=== PATIENT | male | born 1975 | race Two or more races ===

== ENCOUNTER 2021-01-10 11:34 | Outpatient (REF) | payer OTHER, SELFPAY ==
--- NOTE | ~2021-01-10 | US_ITS ---
EXAMINATION: US ABDOMEN COMPLETE CLINICAL INFORMATION: Right lower quadrant pain. COMPARISON: Renal ultrasound 03/18/2012. TECHNIQUE: Real-time imaging of the abdominal viscera. FINDINGS: PANCREAS: No abnormal mass or inflammatory changes seen about the head and body of the pancreas. The tail is obscured by overlying bowel gas. ABDOMINAL AORTA: The proximal, mid, and distal segments are normal in caliber. INFERIOR VENA CAVA: Visualized portions are normal. LIVER: The liver is normal in size. The liver contour is normal. There is increased echogenicity of the liver parenchyma consistent with fatty infiltration. No focal hepatic lesion. There is no intrahepatic biliary duct dilatation seen. GALLBLADDER: Normal. The gallbladder is physiologically distended without evidence of stones, sludge, polyps, wall thickening or pericholecystic fluid. COMMON BILE DUCT: Normal in caliber measuring 0.3 cm in diameter. RIGHT KIDNEY: Within the midpole region, there is a 2 mm echogenic density which may represent a nonobstructive calculus. No hydronephrosis or focal parenchymal lesions. The kidney measures 10.2 cm in maximum dimension. LEFT KIDNEY: Within the lower pole, there is a 1.9 cm cyst which appears to be simple. About the lower pole cortex, there is an echogenic 5 mm structure which may represent an angiomyolipoma. There is a midpole echogenic focus which may represent nonobstructive calculus or vessel interface. No hydronephrosis. The kidney measures 10.8 cm in maximum dimension. SPLEEN: Normal. The spleen measures 10.7 cm in maximum dimension. FREE FLUID: None. US/US abdomen complete IMPRESSION: Echogenic focus lower pole of the left kidney likely representing an angiomyolipoma. No evidence of obstructive uropathy. Nephrolithiasis. 1.9 cm left renal cyst.
== END 2021-01-10 11:35 | disposition home or self-care (01) ==
LOC: HO.US 11:34
PROVIDERS: PCP General Practice; Visit Provider General Practice
DX: R10.31 Right lower quadrant pain (principal)
CPT/HCPCS: 76700

== ENCOUNTER 2022-12-06 08:40 | Outpatient (REF) | payer OTHER, SELFPAY ==
[2022-12-06 14:25] LABS: MANUAL DIFF FLAG NO
[2022-12-06 14:36] LABS: Basophils Percent Auto 0.5 % (0-2); Eosinophils Absolute Auto 0.1 X10*3/uL (0.0-0.4); Eosinophils Percent Auto 1.7 % (0-4); Hematocrit 41.4 % (42.0-52.0); Hemoglobin 13.6 g/dl (14.0-18.0); Imm Gran Abs Auto 0.01 X10*3/uL (0.00-0.03); Imm Gran Pct Auto 0.2 % (0.0-0.4); Lymphocytes Absolute Auto 1.3 X10*3/uL (1.2-4.9); Lymphocytes Percent Auto 33.1 % (20-40); Mean Corpuscular HGB Conc 32.9 g/dl (31.0-36.0); Mean Corpuscular Hemoglobin 27.4 pg (27.0-33.0); Mean Corpuscular Volume 83.5 fL (80.0-98.0); Mean Platelet Volume 12.7 fL (9.4-12.4); Monocytes Absolute Auto 0.3 X10*3/uL (0.1-1.2); Monocytes Percent Auto 7.7 % (2-11); Neutrophils Absolute Auto 2.3 x10*3/uL (2.0-8.3); Neutrophils Percent Auto 56.8 % (45-73); Platelet Count 173 X10*3/uL (160-400); Red Blood Count 4.96 X10*6/uL (4.60-5.80); Red Cell Distribution Width 12.8 % (11.0-16.0)
[2022-12-06 14:53] LABS: Alanine Aminotransferase 24 U/L (0-40); Albumin Level 4.3 g/dL (3.5-5.0); Alkaline Phosphatase 60 U/L (39-117); Aspartate Amino Transferase 23 U/L (5-37); Bilirubin Direct 0.3 mg/dL (0.0-0.5); Bilirubin Total 0.9 mg/dL (0.0-1.0); Cholesterol 201 mg/dL (<200); HDL Cholesterol 48 mg/dL (>40); LDL Cholesterol Calculated 116 mg/dL (<100); Total Protein 7.6 g/dL (6.5-8.0); Triglycerides 185 mg/dL (<150)
[2022-12-06 15:09] LABS: TSH reflex Free T4 1.02 uIU/mL (0.32-4.0)
[2022-12-07 08:33] LABS: Follicle Stimulating Hormone 3.3 mIU/mL (1.6-8.0); Lutenizing Hormone 2.4 mIU/mL (1.5-9.3); Prolactin 5.6 ng/mL (2.0-18.0)
[2022-12-10 17:03] LABS: Testosterone, Free 102.1 pg/mL (35.0-155.0); Testosterone, Total 429 ng/dL (250-1100)
== END 2022-12-06 08:41 | disposition home or self-care (01) ==
LOC: HO.CHCLDS 08:40
PROVIDERS: Visit Provider Internal Medicine
DX: Z00.00 Encounter for general adult medical examination without abnormal findings (principal); N52.8 Other male erectile dysfunction
CPT/HCPCS: 36415; 80061; 80076; 83001; 83002; 84146; 84402; 84403; 84443; 85025

== ENCOUNTER 2023-01-17 08:10 | Outpatient (AMB) | payer OTHER, SELFPAY ==
--- NOTE | 2023-01-17 08:19 | MHC.OFFVIS ---
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 States he has had this for the last 4 months and had increase in size. He has some discomfort, no pain. Patient would like to discuss removal of this lump. 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 He is here with his , who is acting as a fisheries technical officer. He complains of a lump on his right thumb that has been present for ~6 months now. He says this has increased in size but recently has been shrinking somewhat. He finds this causes him discomfort with use, but is not particularly painful. He works as a bella [facility] Social History (Updated 01/17/23 @ 08:24 by Janey Conti [facility]) Current occupation: rt hand/ barbar Review of Systems Const All systems reviewed & are unremarkable except as noted in HPI and below Physical Exam Vital Signs: BMI result Body Mass Index 28.7 Const General: cooperative, healthy appearing and no acute distress Orientation/consciousness: patient oriented x3 HEENT Head: Yes normocephalic and Yes atraumatic Eyes EOM: EOMs intact bilaterally Resp Effort & Inspection: normal respiratory effort and able to speak in complete sentences Cardio Jugular venous distension: no JVD Skin General skin exam: turgor normal Rashes: no rashes Neuro General: patient oriented x3 Extrem Other: Evaluation of Right Upper Extremity: The patient is alert, oriented, and in no acute distress Neuro: Median, Ulnar, Radial nerves motor and sensory intact and sensation is normal to the tips of all digits Vascular: Cap refill brisk ROM: He can make a fist and extend all his digits Good active thumb ROM Skin: No lacerations or abrasions. General: No Ecchymosis. No Erythema or evidence of infection. Mass on the volar aspect of the thumb proximal phalanx, measuring ~1-1.2cm in diameter. This is non-tender Psych Appearance: grossly normal Affect: normal affect Attitude: cooperative Assessment & Plan Assessment & Plan (1) Mass of soft tissue of right upper extremity: Code(s): M79.89 - Other specified soft tissue disorders Plan Assessment & Plan: 1. Right thumb mass Volar aspect of the proximal phalanx Measuring ~1-1.2cm in diameter I educated him about this condition I discussed operative and non-operative treatment options The patient would like to proceed with surgery The risks and benefits of operative treatment were discussed with the patient and the patient wishes to proceed with surgery. These risks include, but are not limited to risk of damage to blood vessels, nerves, tendons, infection, recurrence, incomplete relief of preoperative symptoms, persistent pain, possible need for further surgery and the risks associated with regional blocks and anesthesia. The plan is to take the patient to the operating room sometime in the next few months for the following procedures: 1. Right thumb mass excision, under general All of the preoperative paperwork including the consent was filled out today. All the patient's questions were answered. The patient understands that they will be contacted by our materials scheduler soon to schedule this procedure. He would like to have this done ideally around the end of March He denies Diabetes, blood thinners, asthma, heart, lung, kidney issues Scribed for Radha Dobson MD by Joesph Rodriguez, director medical affairs, on 01/17/23 at 8:50 AM, EST. Coding Level of Care Code New Pt Level 4 (28123) Diagnoses Mass of soft tissue of right upper extremity M79.89
[2023-01-17 08:22] VITALS: BMI 28.7
== END 2023-01-17 09:20 | disposition home or self-care (01) ==
PROVIDERS: PCP General Practice; Visit Provider Orthopaedic Surgery
DX: M79.89 Other specified soft tissue disorders (principal); R22.31 Localized swelling, mass and lump, right upper limb
CPT/HCPCS: 99204

== ENCOUNTER → 2023-01-17 08:10 | Outpatient (BNVA) | payer OTHER, SELFPAY | PROVIDERS: PCP General Practice; Visit Provider Orthopaedic Surgery | DX: M79.89 Other specified soft tissue disorders (principal) | CPT/HCPCS: 99202 ==

== ENCOUNTER 2023-12-25 14:56 | Outpatient (REF) | payer OTHER, SELFPAY | END 2023-12-25 14:57 | disposition home or self-care (01) | LOC: HO.HOSX 14:56 | PROVIDERS: Visit Provider Orthopaedic Surgery | DX: Z13.89 Encounter for screening for other disorder (principal) ==

== ENCOUNTER 2023-12-26 08:50 | Outpatient (AMB) | payer OTHER, SELFPAY ==
--- NOTE | 2023-12-26 08:52 | A.OFFVIS_ITS ---
Vital Signs 12/26/23 08:54 Height 5 ft 7 in Weight 183 lb BMI 28.7 Intake Visit Reasons: OV- Synovial cyst of RT hand Intake Note: José 48 year old right hand dominant male who presents today for evaluation of right thumb synovial cyst on the volar aspect of the thumb. Patient reports it has grown in size. He states it has not notice it change in color. Patient states it has become more painful due to overuse. 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 He would like to discuss surgery today. Patient previously booked for excision Apr, 2023, patient no show to his pre-op appt, surgery was cancelled. Electrical Sign Wirer Helper Required: Yes Electrical Sign Wirer Helper Language: Cake Puller Services: Electrical Sign Wirer Helper Present Electrical Sign Wirer Helper Name: SarojMAHAD bean/SELINA Allergies No Known Allergies Allergy (Unverified 12/26/23 08:56) HPI HPI OV- Synovial cyst of RT hand: Details: José is a 48 year old right hand dominant Armenian speaking man who returns to discuss his right thumb mass. He is here with his , who is acting as a director of ancillary services. He was scheduled for surgery to have this removed, but he cancelled as he was worried about proceeding. He complains of a lump on his right thumb that has been present for ~18 months now. He says this has increased in size since he was last seen, and it causes him increased pain by the end of his work day. 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 [facility] Social History (Updated 01/17/23 @ 08:24 by Janey Conti [facility]) Current occupation: rt hand/ barbar Physical Exam Vital Signs: BMI result Body Mass Index 28.7 Extrem Other: Evaluation of Right Upper Extremity: The patient is alert, oriented, and in no acute distress Neuro: Median, Ulnar, Radial nerves motor and sensory intact and sensation is normal to the tips of all digits Vascular: Cap refill brisk ROM: He can make a fist and extend all his digits Good active thumb ROM Soft tissue Mass on the volar ulnar aspect of the thumb at the level of the proximal phalanx. It measures ~1.8-2cm in diameter and is non-tender. No overlying skin changes. No erythema or warmth. Assessment & Plan Assessment & Plan (1) Mass of soft tissue of right upper extremity: Code(s): M79.89 - Other specified soft tissue disorders Category: Medical Plan Assessment & Plan: 1. Right thumb mass Volar Ulnar aspect of the proximal phalanx, over the ulnar digital nerve Measuring ~1.8-2cm in diameter I educated him about this condition I discussed operative and non-operative treatment options The patient would like to proceed with surgery The risks and benefits of operative treatment were discussed with the patient and the patient wishes to proceed with surgery. These risks include, but are not limited to risk of damage to blood vessels, nerves, tendons, infection, recurrence, incomplete relief of preoperative symptoms, persistent pain, possible need for further surgery and the risks associated with regional blocks and anesthesia. I also specifically talked about the possible risk to the ulnar digital nerve. The plan is to take the patient to the operating room sometime in the next few months for the following procedures: 1. Right thumb mass excision, under general All of the preoperative paperwork including the consent was filled out today. All the patient's questions were answered. The patient understands that they will be contacted by our radiology scheduler soon to schedule this procedure. He would like to have this done after the holidays He denies Diabetes, blood thinners, asthma, heart, lung, kidney issues Scribed for Radha Dobson MD by Joesph Rodriguez, pediatrician/medical doctor, on 12/26/23 at 9:05 AM, EST. Orders: Orders XR hand RT min 3V Today M79.641 - Pain in right hand Coding Level of Care Code Est Pt Level 4 (37526) Diagnoses Mass of soft tissue of right upper extremity M79.89
[2023-12-26 08:54] VITALS: BMI 28.7
== END 2023-12-26 09:15 | disposition home or self-care (01) ==
PROVIDERS: PCP General Practice; Visit Provider Orthopaedic Surgery
DX: R22.31 Localized swelling, mass and lump, right upper limb (principal)
CPT/HCPCS: 99214

== ENCOUNTER 2023-12-26 17:47 | Outpatient (REF) | payer OTHER, SELFPAY | END 2023-12-26 17:48 | disposition home or self-care (01) | LOC: HO.HOSX 17:47 | PROVIDERS: Visit Provider Orthopaedic Surgery | DX: M79.89 Other specified soft tissue disorders (principal) | CPT/HCPCS: 99212 ==

== ENCOUNTER 2024-07-28 10:32 | Outpatient (REF) | payer OTHER, SELFPAY ==
--- OUTSIDE RECORDS SUMMARY | 2024-07-28 11:14 | XMS_ITS | Encounter Summary ---
Author Organization [employer] Address [address] [place] [address] Care Team Providers Care Paper Cleaner Name Role Phone Alan Roman MD Primary Care Provider [phone] Encounter Details Date Type Department Care Team (Latest Contact Info) Description 07/28/2024 Travel Social History Tobacco Use Types Packs/Day Years Used Date Smoking Tobacco: Former Cigarettes 0.5 13 2 010 - 2022 Smokeless Tobacco: Never Comments:Quit vaping 2 month s ago. Alcohol Answer Date Recorded Q1: How often do you have a drink containing alc ohol? 5 07/28/2024 Q2: How many drinks containi ng alcohol do you have on a typical day when you are drinking? 4 07/28/2024 Q3: How often do you have six or more drinks on one occasion? 4 07/28/2024 Depression Answer Date Recorded Patient Health Questionnaire-9 Score 1 12/04/2022 Housing Stability Answer Date Recorded What is your housing situation today? I have rody lemons 01/01/[address] you li ve. Do you have problems with any of the following? None of the above 01/01/2023 Food Insecurity Answer Date Recorded Within the past 12 months, y ou worried that your food would run out before you got money to buy more: Never True 01/01/2023 Within the past 12 months,th e food you bought just didn't last and you didn't have enough money to get more: Never True Transportation Answer Date Recorded In the past 12 months, has l ack of transportation kept you from medical appts, meetings, work or from getting things needed for daily living? No 01/01/2023 Utilities Answer Date Recorded In the past 12 months, has t he electric, gas, oil or water company threatened to shut off services in your home? No 01/01/2023 Depression Answer Date Recorded Patient Health Questionnaire-2 Score 1 12/04/2022 Sex and Gender Information Value Date Recorded Sex Assigned at Male 01/16/2022 10:19 AM EDT Legal Sex Male 10:19 AM EDT Gender Identity Choose not to disclose 10:19 AM EDT Sexual Orientation Choose not to disclose 2021 10:19 AM EDT documented as of this encounter Plan of Treatment Not on file documented as of this encounter Visit Diagnoses Not on filedocumented in this encounter Additional Health Concerns Assessment Noted Time PHQ-9 Depression Total Score: 1 12/05/19 23 2:36 PM EDT documented as of this encounter Care Teams Paper Cleaner Relationship Specialty Start Date End Date Alan Roman MD [address] [place] [id number] PCP - General Internal Medicine 09/08/11 documented as of this encounter
--- OUTSIDE RECORDS SUMMARY | 2024-07-28 11:14 | XMS_ITS | Encounter Summary ---
Author Organization [employer] Address [address] [place] [address] Care Team Providers Care Wax Pot Tender Name Role Phone Alan Roman MD Primary Care Provider [phone] Encounter Details Date Type Department Care Team ([facility] Contact Info) Description 12/12/2022 Orders Only [facility] [address] [place], [place] [id number] Alan Roman MD [address] [place] [address] Screening for colon cancer Social History Tobacco Use Types Packs/Day Years Used Date Smoking Tobacco: Former Cigarettes 0.5 13 2 - 2022 Smokeless Tobacco: Never Comments:Vape 1 cartridge a day. Depression Answer Date Recorded Patient Health Questionnaire-9 Score 1 12/04/2022 Depression Answer Date Recorded Patient Health Questionnaire-2 [...] documented as of this encounter Visit Diagnoses Diagnosis Screening for colon cancer Special screening for malignant neoplasms, colon documented in this encounter Additional Health Concerns Assessment Noted Time PHQ-9 Depression Total Score: 1 12/05/19 23 2:36 PM EDT documented as of this encounter Care Teams Wax Pot Tender Relationship Specialty Start Date End Date Alan Roman MD [address] [place] [id number] PCP - General Internal Medicine 09/08/11 documented as of this encounter
--- OUTSIDE RECORDS SUMMARY | 2024-07-28 11:14 | XMS_ITS | Encounter Summary ---
Author Organization [employer] Address [address] [place] [address] Care Team Providers Care Merchandise Examiner Name Role Phone Alan Roman MD Primary Care Provider [phone] Reason for Visit * Reason Comments Annual Exam Encounter Details Date Type Department Care Team (Latest Contact Info) Description 07/28/2024 9:30 AM EDT Office Visit [facility] [address] [place], [place] [phone] Alan Roman MD [address] [place] [address] Annual physical exam (Primary Dx); Screening for colon cancer; Dietary counseling; Exercise counseling; Class 1 obesity due to excess calories with serious comorbidity and body mass index (BMI) of 31.0 to 31.9 in adult; Folliculitis; Right lateral epicondylitis Social History Tobacco Use Types Packs/Day Years Used Date Smoking Tobacco: Former Cigarettes 0.5 13 2022 Smokeless Tobacco: Never Tobacco Cessation:Counseling Given: Not Answered Comments:Quit vaping 2 months ago. Alcohol Answer Date Recorded Q1: How [...] AM EDT documented as of this encounter Last Filed Vital Signs Vital Sign Reading Time Taken Comments Blood Pressure 136/78 07/28/2024 9:29 AM EDT Pulse 79 07/28/2024 9:29 AM EDT Temperature 36.6 ??C (97.9 ??F) 07/28/2024 9:29 AM ED T Respiratory Rate 20 07/28/2024 9:29 AM EDT Oxygen Saturation 98% 07/28/2024 9:29 AM EDT Inhaled Oxygen Concentration - - Weight 90.7 kg (200 lb) 07/28/2024 9:29 AM EDT Height 170.2 cm (5' 7 ) 07/28/2024 9:29 AM EDT Body Mass Index 31.32 07/28/2024 9:29 AM EDT documented in this encounter Progress Notes * Alan Roman MD - 07/28/2024 9:30 AM EDT SUBJECTIVE José Abeba Donny is a 49 y.o. adult who presents for Annual Exam. HPI Doing overall well. Only complains of right elbow pain that started 2 to 3 months ago. 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 The pain is intermittent and exacerbated by movements in general. No reported fever or other constitutional symptoms. No swellings of the area. Patient Active Problem List Diagnosis Hypertension No Known Allergies Current Outpatient Medications on File Prior to Visit Medication Sig Dispense Refill amLODIPine (Norvasc) 5 MG tablet Take 1 tablet (5 mg) by mouth Once per day. 30 tablet 11 betamethasone, augmented, (Diprolene) 0.05 % ointment Apply topically 2 times daily. To apply to the Hands 2 times a day x 2 weeks. 15 g 0 cholecalciferol (Vitamin D-3) 25 MCG (1000 UT) tablet Take 1 Tablet by Oral route once a day econazole nitrate 1 % cream Apply topically 2 times daily. 15 g 0 fluticasone (Flonase) 50 MCG/ACT nasal spray Administer 1-2 sprays into each nostril 2 times daily.Shake gently. Before first use, prime pump. After use, clean tip and replace cap. 16 g 11 lisinopril-hydroCHLOROthiazide 10-12.5 MG tablet TAKE ONE TABLET EVERY MORNING 30 tablet 11 tadalafil (Cialis) 5 MG tablet Take 1 tablet (5 mg) by mouth Once per day. 30 tablet 11 triamcinolone (Kenalog) 0.1 % ointment Apply topically 2 times daily. 30 g 0 No current facility-administered medications on file prior to visit. Review of Systems Constitutional: Negative for activity change, appetite change, chills and diaphoresis. HENT: Negative for dental problem, drooling and ear discharge. Eyes: Negative for pain and itching. Respiratory: Negative for cough, choking and chest tightness. Cardiovascular: Negative for palpitations and leg swelling. Gastrointestinal: Negative for abdominal pain, anal bleeding and blood in stool. Endocrine: Negative for cold intolerance and heat intolerance. Genitourinary: Negative for flank pain, frequency and genital sores. Musculoskeletal: Negative for back pain. Neurological: Negative for light-headedness, numbness and headaches. Psychiatric/Behavioral: Negative for agitation, confusion and decreased concentration. OBJECTIVE Vitals: 07/28/24 0929 BP: 136/78 BP Location: Left arm Patient Position: Sitting BP Cuff Size: Adult long Pulse: 79 Resp: 20 Temp: 97.9 ??F (36.6 ??C) TempSrc: Oral SpO2: 98% Weight: 200 lb (90.7 kg) Height: 5' 7 (1.702 m) Physical Exam Constitutional: General: José is not in acute distress. Appearance: Normal appearance. José is obese. José is not ill-appearing, toxic-appearing or diaphoretic. Cardiovascular: Rate and Rhythm: Normal rate. Heart sounds: No murmur heard. No friction rub. Pulmonary: Effort: Pulmonary effort is normal. No respiratory distress. Breath sounds: No stridor. No wheezing or rhonchi. Abdominal: General: Abdomen is flat. Musculoskeletal: Comments: Tenderness of the right lateral epicondyle. No skin rash at inspection. Skin: General: Skin is warm. Comments: Multiple perifollicular erythema with some small pustules of the upper back and shouldersbilaterally. Neurological: General: No focal deficit present. Mental Status: José is alert. Assessment/Plan Assessment/Plan Diagnoses and all orders for this visit: Annual physical exam Comments: Normal exam Pt is to maintain a healthy and balanced diet. Orders: - CBC auto differential; Future - Comprehensive Metabolic Panel; Future - Lipid Panel, Standard; Future - Hepatitis C Antibody with Reflex to HCV, RNA, Quantitative, Real-Time PCR; Future - HIV-1/2 Antigen and Antibodies, Fourth Generation, with Reflexes; Future - TSH W/Reflex to FT4; Future Screening for colon cancer - Cologuard?? colon cancer screening; Future Dietary counseling Exercise counseling Class 1 obesity due to excess calories with serious comorbidity and body mass index (BMI) of 31.0 to 31.9 in adult Dietary Recommendations: Fruits, vegetables, whole grains, protein foods, and fat-free or low-fat dairy products are healthychoices. Eat different types of protein foods in your diet. This can include seafood, lean meats, poultry, beans, peas, lentils, nuts, seeds, soy products, and eggs. Limit foods and beverages higher in added sugars, saturated fat, and sodium. Exercise Recommendations: At least 150 minutes of moderate-intensity physical activity per week, or an equivalent combinationof moderate- and vigorous-intensity activity Folliculitis - Chlorhexidine Gluconate (Hibiclens) 4 % solution; To apply to wet skin, Let in place 5 minutes, rinse thoroughly after Right lateral epicondylitis Comments: Elbow strap recommended Diclofenac gel up to 4 times a day. Call the office in the next 4 to 6 weeks if no improvement. Orders: - Diclofenac Sodium 1 % gel; To apply to the affected area 3 times a day documented in this encounter Plan of Treatment Scheduled Orders Name Type Priority Associated Diagnoses Orde r Schedule Cologuard?? colon cancer screening Lab Routine Screening for colon cancer Expected: 07/28/2024 (Approximate), Expires: 07/28/2025 CBC auto differential Lab Routine Annual physical exam Expected: 07/28/2024 (Approximate), Expires: 07/28/2025 Comprehensive Metabolic Panel Lab Routine Annual physical exam Expected: 07/28/2024 (Approximate), Expires: 07/28/2025 Lipid Panel, Standard Lab Routine Annual physical exam Expected: 07/28/2024 (Approximate), Expires: 07/28/2025 Hepatitis C Antibody with Reflex to HCV, RNA, Quantitative, Real-Time PCR Lab Routine Annual physical exam Expected: 07/28/2024, Expires: 07/28/2025 HIV-1/2 Antigen and Antibodies, Fourth Generation, with Reflexes Lab Routine Annual physical exam Expected: 07/28/2024 (Approximate), Expires: 07/28/2025 TSH W/Reflex to FT4 Lab Routine Annual physical exam Expected: 07/28/2024 (Approximate), Expires: 07/28/2025 documented as of this encounter Visit Diagnoses Diagnosis Annual physical exam- Primary Routine general medical examination at a health care facility Screening for colon cancer Special screening for malignant neoplasms, colon Dietary counseling Dietary surveillance and counseling Exercise counseling Class 1 obesity due to excess calories with serious comorbidity and body mass index (BMI) of 31.0 to 31.9 in adult Folliculitis Other specified disease of hair and hair follicles Right lateral epicondylitis documented in this encounter Additional Health Concerns Assessment Noted Time PHQ-9 Depression Total Score: 1 12/05/19 23 2:36 PM EDT documented as of this encounter Care Teams Merchandise Examiner Relationship Specialty Start Date End Date Alan Roman MD [address] [place] [address] PCP - General Internal Medicine 09/08/11 documented as of this encounter
--- OUTSIDE RECORDS SUMMARY | 2024-07-28 11:14 | XMS_ITS | Clinical Summary ---
Author Organization [employer] Address [address] [facility] [address] [place] [address] Care Team Providers Care Drug Abuse Social Worker Name Role Phone Alan Roman MD Primary Care Provider Allergies No known active allergies Medications cholecalciferol (Vitamin D-3) 25 MCG (1000 UT) tablet Take 1 Tablet by Oral route once a day 1 Active fluticasone (Flonase) 50 MCG/ACT nasal sprayIndications: Nasal congestion Administer 1-2 sprays into each nostril 2 times daily. Shake gently. Before first use, prime pump. After use, clean tip and replace cap. 16 g 11 3 Active econazole nitrate 1 % creamIndications: Balanitis Apply topically 2 times daily. 15 g 4 025 Active betamethasone, augmented, (Diprolene) 0.05 % ointmentIndicatio ns:Hand dermatitis Apply topically 2 times daily. To apply to the Hands 2 times a day x 2 weeks. 15 g 4 Active lisinopril-hydroC HLOROthiazide 10-12.5 MG tabletIndications :Primary hypertension TAKE ONE TABLET EVERY MORNING 30 tablet 11 5 Active amLODIPine (Norvasc) 5 MG tabletIndications :Primary hypertension Take 1 tablet (5 mg) by mouth Once per day. 30 tablet 11 5 026 Active triamcinolone (Kenalog) 0.1 % ointmentIndicatio ns:Hand dermatitis Apply topically 2 times daily. 30 g 5 Active tadalafil (Cialis) 5 MG tabletIndications :Other male erectile dysfunction Take 1 tablet (5 mg) by mouth Once per day. 30 tablet 11 5 026 Active Chlorhexidine Gluconate (Hibiclens) 4 % solutionIndicatio ns:Folliculitis To apply to wet skin, Let in place 5 minutes, rinse thoroughly after 118 mL 1 5 Active Diclofenac Sodium 1 % gelIndications:Ri ght lateral epicondylitis To apply to the affected area 3 times a day 100 g 5 Active ibuprofen 600 MG tabletIndications :Acute pain of left shoulder Take 1 tablet (600 mg) by mouth every 8 (eight) hours if needed for mild pain for up to 10 days. 30 tablet 5 025 Active Problems Problem Noted Date Diagnosed Date Hypertension 01/01/2023 Encounters Date Type Department Care Team Description 07/28/2024 9:30 AM EDT Office Visit [facility] [address] [place] [address] Alan Roman MD Annual physical exam (Primary Dx); Screening for colon cancer; Dietary counseling; Exercise counseling; Class 1 obesity due to excess calories with serious comorbidity and body mass index (BMI) of 31.0 to 31.9 in adult; Folliculitis; Right lateral epicondylitis 07/28/2024 Travel 07/21/2024 Patient Outreach [facility] [address] [place] [id number] Alan Roman MD Pre-visit Planning (Pre visit planning LVM ) 06/26/2024 Refill [facility] [address] [place] [address] Alan Roman MD Other male erectile dysfunction 06/23/2024 2:40 PM EDT Office Visit [facility] [address] [place] [address] Alan Roman MD Hand dermatitis (Primary Dx); Acute pain of left shoulder; Primary hypertension 06/23/2024 Travel 06/23/2024 Telephone [facility] [address] [place] [address] Alan Roman MD Nurse Triage 06/02/2024 Telephone [facility] [address] [place] [address] Alan Roman MD Nurse Triage 05/05/2024 Refill [facility] [address] [place] [address] Alan Roman MD Primary hypertension from Last 3 Months Immunizations Name Administration Dates Next Due Hep B, adult 09/23/2009 Influenza, Split (incl. purified surface antigen ) 04/03/2012 Tdap 10/15/2015 Family History Medical History Relation Name Comments Diabetes Brother Hypertension Maternal Grandmother No Known Problems Paternal Grandfather Relation Name Status Comments Brother Maternal Grandmother Paternal Grandfather Social History Tobacco Use Types Packs/Day Years Used Date Smoking Tobacco: Former Cigarettes 0.5 13 2 - 2022 Smokeless Tobacco: Never Tobacco Cessation:Counseling Given: [...] not to disclose 2021 10:19 AM EDT Last Filed Vital Signs Vital Sign Reading [...] Mass Index 31.32 07/28/2024 9:29 AM EDT Plan of Treatment Health Maintenance Due Date Last Done Comments CT Colonography 1976 Colonoscopy 1976 Colorectal Cancer Screening 1976 FIT DNA/Cologuard 1976 FIT 1976 FOBT 1976 Sigmoidoscopy 1976 Family Planning (PISQ) 01/03/1991 Hepatitis B Vaccines (2 of 3 - 19+ 3-dose series) 10/21/2009 09/23/2009 SDOH Screening 09/23/2023 09/22/2022 COVID-19 Vaccine ( - 2023-2 5 season) 2023 05/29/2021, 09/12/2020, 08/22/2020 Influenza Vaccine (#1) 2023 04/03/2012 Depression Screening 12/05/2023 12/04/2022, 12/04/2022 Alcohol/Substance Use Screening 07/28/2025 07/28/2024 Tobacco Screening 07/28/2025 07/28/2024 DTaP/Tdap/Td Vaccines (2 - T d or Tdap) 10/14/2025 10/15/2015 Zoster Vaccines (1 of 2) 01/03/2026 Lipid Panel 12/07/2027 12/06/2022, 12/15/2020 RSV Patients and Patients Aged 60 years or older (1 - 1-dose 75+ series) 01/03/2051 HIV Screening Completed 12/15/2020 Hepatitis C Screening Completed 12/15/2020 HIB Vaccines Aged Out No longer eligi ble based on patient's age to complete this topic HPV Vaccines Aged Out No longer eligi ble based on patient's age to complete this topic Hepatitis A Vaccines Aged Out No long er eligible based on patient's age to complete this topic IPV Vaccines Aged Out No longer eligi ble based on patient's age to complete this topic Meningococcal Vaccine Aged Out No ashutosh tania eligible based on patient's age to complete this topic Pneumococcal Vaccine: Pediatrics (0 to 5 Years) and At-Risk Patients (6 to 49) Years) Aged Out No longer eligible b ased on patient's age to complete this topic RSV under 20 months Aged Out No longe r eligible based on patient's age to complete this topic Rotavirus Vaccines Aged Out No longer eligible based on patient's age to complete this topic Procedures Procedure Name Priority Date/Time Associated Diagnosis Comments LIPID PANEL, STANDARD Routine 12/06/2022 8:51 AM EDT Annual physical exam Z[facility] HISTORICAL HEPATITIS C AB W/REFL TO HCV RNA, QN, PCR Routine 12/15/2020 8:05 AM EDT HIV 1/2 ANTIGEN/ANTIBODY, FOURTH GENERATION W/RFL Routine 12/15/2020 8:05 AM EDT from Last 3 Months or Most Recently Relevant to Health Maintenance Results * (ABNORMAL) Lipid Panel, Standard (12/06/2022 8:51 AM EDT) Triglycerides 185(H) <150 mg/dL [facility] Comment:Desirable Triglyceri de: less than 150 mg/dLBorderline High Triglyceride 150-199 mg/dLHigh Triglyceride: 200-499 mg/dLVery High Triglyceride: greater than or equal to 5OO mg/dL Cholesterol 201(H) <200 mg/dL [facility] Comment:Desirable Cholestero l: less than 200 mg/dLBorderline High Cholesterol: 200-239 mg/dLHigh Cholesterol: greater than 239 mg/dL LDL Cholesterol Calculated 116(H) <100 mg/dL [facility] Comment:Desirable LDL: less than 100 mg/dLNear Optimal/Above Optimal LDL: 110- 129 mg/dLBorderline High LDL: 130-159 mg/dLHigh LDL: 160-189 mg/dLVery High LDL: greater than or equal to 190 mg/dL HDL Cholesterol 48 >40 mg/dL [facility] Comment:Desirable HDL: great er than 40 mg/dL Note: This HDL assay may give artificially low results in patients with liver disease. Blood Venous blood specimen / Unknown 12/06/2022 8:51 AM EDT 12/06/2022 2:23 PM EDT us Alna Roman MD LAB BLOOD ORDERABLES Final Result [facility] [address] [place] [phone] * HEPATITIS C AB W/REFL TO HCV RNA, QN, PCR (12/15/2020 8:05 AM EDT) HEPATITIS C ANTIBODY NON-REACT [facility] NON-REACT [facility] INDEX 0.05 <1.00 [facility] Comment: ?? HCV antibody was non-reactive. There is no laboratory ?? evidence of HCV infection. ?? In most cases, no further action is required. However, if recent HCV exposure is suspected, a test for HCV RNA (test code 31410) is suggested. ?? For additional information please refer to http://education.[employer] Plan/faq/KAK28c6 (This link is being provided for informational/ educational purposes only.) ?? 12/15/2020 8:05 AM EDT Adriana Del Angel MD HISTORICAL/NON ORDERABLE LABS Fi nal Result Performing Organization Address [facility] Co de Phone Number [facility] [address] * HIV 1/2 ANTIGEN/ANTIBODY,FOURTH GENERATION W/RFL (12/15/2020 8:05 AM EDT) HIV-1/2 ANTIGEN AND ANTIBODIES, 4TH GENERATION W/ REFLEX NON-REACT LEON NON-REACT LEON [facility] Comment: HIV-1 antigen and HIV-1/HIV-2 antibodies were not detected. There is no laboratory evidence of HIV infection. ?? PLEASE NOTE: This information has been disclosed to you from records whose confidentiality may be protected by state law. ??If your state requires such protection, then the state law prohibits you from making any further disclosure of the information without the specific written consent of the person to whom it pertains, or as otherwise permitted by law. A general authorization for the release of medical or other information is NOT sufficient for this purpose. ? For additional information please refer to http://education.[employer] Plan/faq/DWZ509 (This link is being provided for informational/ educational purposes only.) ? The performance of this assay has not been clinically validated in patients less than 2 years old. ?? 12/15/2020 8:05 AM EDT us Adriana Del Angel MD LAB BLOOD ORDERABLES Final Resul t Performing Organization Address [facility] Phone Number [facility] [address] from Last 3 Months or Most Recently Relevant to Health Maintenance Insurance [facility] [place], [place] Care Teams Drug Abuse Social Worker Relationship Specialty Start Date End Date Alan Roman MD [address] [place] [address] Flavia JOVANNY [id number] PCP - General Internal Medicine 09/08/11
--- OUTSIDE RECORDS SUMMARY | 2024-07-28 11:14 | XMS_ITS | Encounter Summary ---
Author Organization [employer] Address [address] [facility] [address] [place] [address] Care Team Providers Care Air Battle Manager Name Role Phone Alan Roman MD Primary Care Provider Reason for Visit * Reason Onset Date Comments Med Refill 08/16/2022 Encounter Details Date Type Department Care Team ([facility] st Contact Info) Description 08/16/2022 Telephone [facility] [address] [place] [address] Alan Roman MD [address] [place] [address] Med Refill Social History Tobacco Use Types Packs/Day Years Used Date Smoking Tobacco: Never Assessed Sex and Gender Information Value Date Recorded Sex Assigned at Male 01/16/2022 10:19 AM EDT Legal Sex Male 10:19 AM EDT Gender Identity Choose not to disclose 10:19 AM EDT Sexual Orientation Choose not to disclose 2021 10:19 AM EDT documented as of this encounter Miscellaneous Notes * Telephone Encounter - Sherri Stephens - 08/16/2022 8:21 AM EDT Tc from patient requesting a med refill on medication hydroCHLOROthiazide (HYDRODiuril) 12.[address] Roman documented in this encounter Plan of Treatment Not on file documented as of this encounter Visit Diagnoses Not on filedocumented in this encounter Care Teams Air Battle Manager Relationship Specialty Start Date End Date Alan Roman MD [address] [place] [phone] PCP - General Internal Medicine 09/08/11 documented as of this encounter
[2024-07-28 14:18] LABS: MANUAL DIFF FLAG NO
[2024-07-28 14:27] LABS: Basophils Percent Auto 0.6 % (0-2); Eosinophils Absolute Auto 0.1 X10*3/uL (0.0-0.4); Eosinophils Percent Auto 1.9 % (0-4); Hematocrit 38.4 % (42.0-52.0); Hemoglobin 12.8 g/dl (14.0-18.0); Imm Gran Abs Auto 0.02 X10*3/uL (0.00-0.03); Imm Gran Pct Auto 0.4 % (0.0-0.4); Lymphocytes Absolute Auto 1.5 X10*3/uL (1.2-4.9); Lymphocytes Percent Auto 31.4 % (20-40); Mean Corpuscular HGB Conc 33.3 g/dl (31.0-36.0); Mean Corpuscular Hemoglobin 27.2 pg (27.0-33.0); Mean Corpuscular Volume 81.7 fL (80.0-98.0); Mean Platelet Volume 12.7 fL (9.4-12.4); Monocytes Absolute Auto 0.5 X10*3/uL (0.1-1.2); Monocytes Percent Auto 10.7 % (2-11); Neutrophils Absolute Auto 2.6 x10*3/uL (2.0-8.3); Platelet Count 148 X10*3/uL (160-400); Red Cell Distribution Width 13.1 % (11.0-16.0); White Blood Count 4.8 X10*3/uL (4.8-10.8)
[2024-07-28 15:17] LABS: Alanine Aminotransferase 31 U/L (0-40); Albumin Level 4.3 g/dL (3.5-5.0); Anion Gap 12 (12-20); Aspartate Amino Transferase 33 U/L (5-37); Bilirubin Total 0.5 mg/dL (0.0-1.0); Blood Urea Nitrogen 17 mg/dL (9-16); Calcium 8.9 mg/dL (8.4-10.2); Carbon Dioxide 28 mmol/L (22-29); Chloride 101 mmol/L (96-108); Cholesterol 215 mg/dL (<200); Estimated Glomerular Filt Rate > 60; Glucose Random 100 mg/dL (60-115); HDL Cholesterol 64 mg/dL (>40); LDL Cholesterol Calculated 139 mg/dL (<100); Potassium 3.9 mmol/L (3.3-5.1); Sodium 137 mmol/L (135-145); Total Protein 7.4 g/dL (6.5-8.0); Triglycerides 62 mg/dL (<150)
[2024-07-28 15:29] LABS: TSH reflex Free T4 0.78 uIU/mL (0.32-4.0)
[2024-07-28 16:42] LABS: Alkaline Phosphatase 59 U/L (39-117)
[2024-07-29 08:09] LABS: HIV AB/AG Nonreactive (Nonreactive); HIV Num 1 0.07 S/CO (0.00-0.99); ~HepC Num1 0.13 S/CO (0.00-0.79); ~Hepatitis C Antibody Nonreactive (Nonreactive)
== END 2024-07-28 10:33 | disposition home or self-care (01) ==
LOC: HO.CHCLDS 10:32
PROVIDERS: Visit Provider Internal Medicine
DX: Z00.00 Encounter for general adult medical examination without abnormal findings (principal)
CPT/HCPCS: 36415; 80053; 80061; 84443; 85025; 86803; 87389